=== PATIENT | female | born 1990 | race Two or more races ===

== ENCOUNTER 2018-01-14 18:55 | Emergency (ER) | payer MEDICAID ==
[~2018-01-14] VITALS: Ht 160 cm; Wt 61.7 kg
[~2018-01-14 18:55] MED LIST: CEPH-571 PO; CEPH500C5 PO; NO HOME MEDS; PHEN-716 PO; PHEN-824 PO; ZOF4T PO
[2018-01-14 19:12] VITALS: BP 102/57
[2018-01-14 19:39] LABS: URINE HCG NEGATIVE (NEG)
[2018-01-14 19:41] LABS: CLARITY,URINE CLOUDY (Clear); COLOR,URINE YELLOW (Yellow); GLUCOSE, URINE NEGATIVE (Neg); KETONES,URINE NEGATIVE (Neg); LEUKOCYTE ESTERASE ,URINE LARGE (Neg); NITRITES, URINE NEGATIVE (Neg); OCCULT BLOOD,URINE LARGE (Neg); PROTEIN,URINE 30 mg/dl (Neg); UROBILINOGEN,URINE 0.2 E.U/dL (0.2-1.0)
[2018-01-14 19:46] LABS: UA COLLECTION TYPE CLN CATCH MIDSTREAM
[2018-01-14 19:48] LABS: BACTERIA,URINE 3+ /HPF (Neg); RBC,URINE 50-100 /HPF (0-2); SQUAMOUS EPITHELIAL CELL,UR FEW /LPF (FEW); WBC,URINE TNTC /HPF (0-4)
[2018-01-14] MEDS ORDERED: NITR100C6 PO (20:26)
== END 2018-01-14 20:36 | disposition home or self-care (01) ==
LOC: ER 18:56
DX: N39.0 Urinary tract infection, site not specified (principal); Z88.6 Allergy status to analgesic agent
CPT/HCPCS: 81001; 81025; 87077; 87088; 87186; 99284